=== PATIENT | male | born 1960 | race Hispanic/Latino ===

== ENCOUNTER 2018-04-19 20:04 | Emergency (ER) | payer OTHER ==
[2018-04-19] MEDS ORDERED: Adacel (T-DAP) 0.5 ML VIAL ONE (20:32)
[2018-04-19] MEDS ORDERED: Lidocaine 1% MPF 2 ML VIAL ONE (20:32)
[2018-04-19] MEDS ORDERED: Lidocaine 1% PF 5 ML VIAL ONE (20:34)
[2018-04-19] MEDS ORDERED: Bacitracin Zinc 1 Packet ONE (20:55)
== END 2018-04-19 21:24 | disposition home or self-care (01) ==
LOC: SCSER 20:04
DX: S61.217A Laceration without foreign body of left little finger without damage to nail, initial encounter (principal); L40.9 Psoriasis, unspecified; K21.9 Gastro-esophageal reflux disease without esophagitis; Z87.442 Personal history of urinary calculi; Z79.899 Other long term (current) drug therapy; Z23 Encounter for immunization; W26.8XXA Contact with other sharp object(s), not elsewhere classified, initial encounter; Y92.009 Unspecified place in unspecified non-institutional (private) residence as the place of occurrence of the external cause
CPT/HCPCS: 12001; 90471; 90715; J2001